=== PATIENT | female | born 1995 | race Caucasian/White ===

== ENCOUNTER 2016-09-27 14:49 | Emergency (ER) | payer OTHER ==
[~2016-09-27] VITALS: Ht 157.4 cm; Wt 59.0 kg
[~2016-09-27 14:49] MED LIST: AMOXICILLIN500 M2 PO; ELIMITE 5%60 GM T; PREDNISONE20 M1 PO; PREDNISONE20 MG PO
[2016-09-27] MEDS ORDERED: ROBAXIN500 M1 PO (15:06)
[2016-09-27] MEDS ORDERED: ANAPROX DS550 MG PO (15:06)
== END 2016-09-27 15:11 | disposition home or self-care (01) ==
LOC: ED 14:49
DX: S16.1XXA Strain of muscle, fascia and tendon at neck level, initial encounter (principal); M25.512 Pain in left shoulder; V49.88XA Car occupant (driver) (passenger) injured in other specified transport accidents, initial encounter; Y93.89 Activity, other specified; Y92.413 State road as the place of occurrence of the external cause; Y99.9 Unspecified external cause status